=== PATIENT | female | born 2000 ===

== ENCOUNTER → 2021-04-05 16:30 | Outpatient (CLI) | payer OTHER, SELFPAY | PROVIDERS: PCP Family Medicine; Referring Provider Family Medicine; Visit Provider Family Medicine | DX: N39.0 Urinary tract infection, site not specified (principal) | CPT/HCPCS: 87086 ==

== ENCOUNTER → 2021-04-26 13:27 | Outpatient (CLI) | payer OTHER, SELFPAY ==
[2021-04-28 14:26] LABS: Hematocrit 37.8 % (36-46); Hemoglobin 12.6 g/dL (12.0-16.0); Mean Corpuscular HGB Conc 33.4 % (30-36); Mean Corpuscular Hemoglobin 30.8 PG (26-34); Mean Corpuscular Volume 92.2 fL (80-100); Platelet Count 323 X10^3/uL (150-400); Red Cell Distribution Width 12.5 % (11.6-14.8); White Blood Cell Count 7.2 X10^3/uL (4.5-11.0)
[2021-04-28 14:41] LABS: Add Manual Diff / Slide Review YES
[2021-04-28 15:20] LABS: Alanine Aminotransferase 15 IU/L (<35); Albumin 4.7 g/dL (3.5-5.0); Albumin Globulin Ratio 1.5 (1.0-2.8); Alkaline Phosphatase 58 U/L (38-126); Aspartate Aminotransferase 24 IU/L (14-36); BUN Creatinine Ratio 13.2 (6-22); Bilirubin Total 0.6 mg/dL (0.2-1.3); Blood Urea Nitrogen 10 mg/dL (7-17); Calcium 9.8 mg/dL (8.4-10.2); Carbon Dioxide 26 mmol/L (22-32); Chloride 103 mmol/L (98-107); Estimated Glomerular Filt Rate > 60.0 mL/min (>60); Globulin 3.1 g/dL (1.7-4.1); Glucose 90 mg/dL (70-100); HEMOLYSIS < 15 (0-50); Potassium 4.2 mmol/L (3.4-5.1); Sodium 139 mmol/L (137-145); Total Protein 7.8 g/dL (6.3-8.2)
[2021-04-28 15:53] LABS: TSH w/ Reflex to FT4 0.93 uIU/mL (0.47-4.68)
[2021-04-28 15:55] LABS: Neutrophils Absolute Manual 2808 /uL (3000-5900); Total Cells Counted 100
[2021-04-28 16:07] LABS: Vitamin B12 559 pg/mL (239-931)
[2021-04-28 16:10] LABS: Urine N gonorrhoeae NOT DETECTED
[2021-04-28 16:15] LABS: Urine Chlamydia NOT DETECTED
[2021-04-28 17:25] LABS: Vitamin D 25 Hydroxy (D3) 19.6 ng/mL (30.0-100.0)
[2021-04-29 08:30] LABS: RPR Screen Non Reactive (Non Reactive)
[2021-04-29 17:45] LABS: HIV 1 & 2 Ab/Ag 4th Gen Combo NEGATIVE (NEGATIVE)
== END ==
PROVIDERS: PCP Family Medicine; Visit Provider Physician Assistant
DX: Z11.3 Encounter for screening for infections with a predominantly sexual mode of transmission (principal); R53.83 Other fatigue
CPT/HCPCS: 80053; 82306; 82607; 84443; 85007; 85025; 86592; 87389; 87491; 87591

== ENCOUNTER → 2021-07-05 11:33 | Outpatient (CLI) | payer OTHER, SELFPAY ==
[2021-07-05 15:53] LABS: Urine N gonorrhoeae NOT DETECTED
[2021-07-05 16:01] LABS: Urine Chlamydia NOT DETECTED
== END ==
PROVIDERS: PCP Family Medicine; Visit Provider Obstetrics & Gynecology
DX: Z11.3 Encounter for screening for infections with a predominantly sexual mode of transmission (principal)
CPT/HCPCS: 87491; 87591